=== PATIENT | female | born 1950 | race Two or more races ===

== ENCOUNTER 2019-03-14 08:20 | Outpatient (CLI) | payer OTHER | END 2019-03-14 08:32 | disposition home or self-care (01) | LOC: LAB 08:20 | DX: D57.20 Sickle-cell/Hb-C disease without crisis (principal); D63.8 Anemia in other chronic diseases classified elsewhere ==

== ENCOUNTER 2021-01-16 15:19 | Outpatient (CLI) | payer OTHER | END 2021-01-16 15:22 | disposition home or self-care (01) | LOC: PPH VACUNA 15:19 | PROVIDERS: ATTEND Emergency Medicine Pediatric Emergency Medicine | DX: Z23 Encounter for immunization (principal) ==